=== PATIENT | female | born 1990 | race Caucasian/White ===

== ENCOUNTER 2024-10-26 21:39 | Emergency (ER) | payer BC, SELFPAY ==
[2024-10-26 21:43] VITALS: BP 145/90; PULSE 82; RESP 18; TEMP 36.7; O2SAT 98; BMI 37.2
--- NOTE | 2024-10-26 22:16 | ED_ITS ---
HPI - General Adult General Date Seen: 10/26/24 Chief complaint: Unspecified Complaint, Adult Stated complaint: feels out of it Time Seen by Provider: 10/26/24 21:43 History of Present Illness HPI narrative: Patient is a 34-year-old woman with a history of type 1 diabetes, she has an insulin pump. She is visiting town from [place], she had a reunion on Friday night. She notes that she does not ever drink, but she did have several drinks on Friday night and also had a THC beverage. On Friday she did not feel good, felt kind of hung over. However she has not improved since then she feels like things are getting worse, she just feels like she is ?out of body and that things are moving in slow motion. She says she feels like she is going crazy. She does not have a headache, she does have a history of migraines and she feels like this is sort of an aura that has been going on for several days. She has some pain on both sides of her neck does not describe any trauma. She has not had any fevers or vomiting. Her blood sugars have occasionally dipped into the 50s but right now she is at 100. She denies any substances since Friday. She notes that her heart rate was fast last night in the 140s but that seems to have resolved. She is status post hysterectomy, has her ovaries still. Review of Systems Status of ROS: Reports: 10 or more systems reviewed and unremarkable except as noted in History and below PFSH PFS Social History Smoking Status: Never smoker How often do you have a drink containing alcohol: 2-4 times a month AUDIT-C Alcohol total score: 2 Non-prescribed substance use: denies use Exam Narrative: Exam Narrative: Vital signs reviewed In general, alert, nontoxic young woman. Head: Normocephalic, atraumatic. Eyes: Sclera clear. Pupils equal and reactive. ENT: Mucous membranes moist. Neck: Supple without adenopathy. Minimal muscular tenderness posteriorly. No meningeal signs. No obvious thyromegaly. Heart: Regular rate and rhythm without murmur. Lungs: Clear. No increased work of breathing, crackles or wheezes. Abdomen: Soft, nontender to palpation. Extremities: Well perfused, pulses intact. No significant edema. Neurologic: Alert, conversant. Speech fluent, face symmetric. Moves all extremities equally. Skin: Warm, dry well perfused. Affect: Normal. Const: Vital Signs, click to edit/add: Vital Signs - 24 hr 10/26/24 21:43 Temperature 98.0 F Pulse Rate [Left P ulse Oximeter] 82 Respiratory Rate 18 Blood Pressure [Ri ght Upper Arm] 145/90 H Pulse Oximetry 98 Oxygen Delivery Me thod Room Air Course Course ED Course: Discussed with her that it may be difficult tonight figure out exactly why she is feeling off, given that symptoms are little bit nonspecific. She does note that she has not been getting much sleep, for example she worked overnight y , came home at 9:00 a.m. and just slept for couple of hours and then was up and about with her kids. Sleep deprivation may be contributing a bit to her symptoms. We did check basic labs including a CBC, comprehensive metabolic panel, and TSH. Her labs are normal, TSH is still pending but I do think reasonable to let her go home him back in follow-up on that later. She had a mg of Ativan, she continues to look well, resting comfortably. Recommend primary care follow-up if she is not feeling things are improved, certainly for worsening or new symptoms such as fever, neurologic changes, severe headache, etcetera return to the ER at any time. Vital Signs Vital signs: Initial Vital Signs Temperature 98.0 F 10/26/24 21:43 Temperature Source Temporal Artery Scan 10/26/24 21:43 Pulse Rate 82 10/26/24 21:43 Pulse Rhythm Regular 10/26/24 21:43 Respiratory Rate 18 10/26/24 21:43 Blood Pressure 145/90 H 10/26/24 21:43 Blood Pressure Mean 108 H 10/26/24 21:43 Blood Pressure Position Sitting 10/26/24 21:43 Pulse Oximetry 98 10/26/24 21:43 Oxygen Delivery Method Room Air 10/26/24 21:43 Vital Signs Temperature 98.0 F 10/26/24 21:43 Pulse Rate 82 10/26/24 21:43 Respiratory Rate 18 10/26/24 21:43 Blood Pressure 145/90 H 10/26/24 21:43 Pulse Oximetry 98 10/26/24 21:43 Oxygen Delivery Method Room Air 10/26/24 21:43 Temperature 98.0 F 10/26/24 21:43 Pulse Rate 82 10/26/24 21:43 Respiratory Rate 18 10/26/24 21:43 Blood Pressure 145/90 H 10/26/24 21:43 Pulse Oximetry 98 10/26/24 21:43 Oxygen Delivery Method Room Air 10/26/24 21:43 Medications Administered Medications: Discontinued Medications Generic Name Dose Route Start Last Admin Trade Name Jayson PRN Reason Stop Dose Admin Lorazepam 1 mg 10/26/24 22:08 10/26/24 22:20 Lorazepam 1 Mg Tablet PO 10/26/24 22:09 1 mg ONCE ONE Administration Medical Decision Making Lab Data Lab results reviewed: Yes I reviewed the patient's lab results Labs: Lab Results 10/26/24 Range/Units 22:30 WBC 8.92 (4.50-11.00) K/uL RBC 4.48 (4.00-5.20) m/uL Hgb 13.3 (12.0-16.0) gm/dL Hct 39.6 (33.0-51.0) % MCV 88 (80-100) fL MCH 30 (26-34) pg MCHC 34 (32-36) gm/dL RDW Coeff of Bobbi 11.7 (11.5-15.5) % Plt Count 315 (140-440) K/uL Neut % (Auto) 63.7 (42.0-72.0) % Lymph % (Auto) 26.3 (20-44) % [place] % (Auto) 6.8 (0.0-11.0) % Eos % (Auto) 2.7 (0.0-7.0) % Baso % (Auto) 0.4 (0.0-3.0) % Neut # (Auto) 5.67 (1.7-7.0) K/uL Lymph # (Auto) 2.35 (0.90-2.90) K/uL [place] # (Auto) 0.60 (0.00-0.90) K/UL Eos # (Auto) 0.24 (0.00-0.50) K/uL Baso # (Auto) 0.04 (0.00-0.30) K/uL Abs Immat Gran (auto) 0.01 (0.00-0.30) K/uL Imm/Tot Granulo (auto) 0.1 % Sodium 136 (135-149) mmol/L Potassium 3.9 (3.6-5.1) mmol/L Chloride 97 (96-114) mmol/L Carbon Dioxide 32 (20-32) mmol/L Anion Gap 7 (7-15) mEq/L BUN 14 (5-24) mg/dL Creatinine 0.8 (0.5-1.5) mg/dL Estimated Creat Clear 86.37 Estimated GFR 100 ml/min Glucose 97 (60-115) mg/dL Calcium 10.4 (8.4-10.6) mg/dL Magnesium 1.9 (1.5-2.6) mg/dL Total Bilirubin 0.3 (0.1-1.5) mg/dL AST 26 (12-35) U/L ALT 32 (4-35) U/L Alkaline Phosphatase 51 (40-150) U/L Total Protein 7.5 (6.0-8.3) g/dL Albumin 4.5 (3.3-5.0) g/dL TSH 3.120 (0.270-4.200) uIU/mL Discharge Plan Discharge Clinical Impression: Malaise Patient Disposition: Home, Self-Care Condition: Stable Additional Instructions: Labs tonight are all very reassuring. See how you feel over the next few days. If you do not feel that your symptoms are improving, see her primary doctor at home. Return any time if you have new or severe symptoms. Follow Up/Referrals: Provider,Not a Local [Primary Care Provider, Family Practice] Stand Alone Forms: [employer] Info Instructions
[2024-10-26 22:38] LABS: Hematocrit 39.6 % (33.0-51.0); Hemoglobin* 13.3 gm/dL (12.0-16.0); Immature Granulocytes Abs Auto 0.01 K/uL (0.00-0.30); Immature Granulocytes Pct Auto 0.1 %; Lymphocytes Absolute Auto 2.35 K/uL (0.90-2.90); Mean Corpuscular HGB Conc 34 gm/dL (32-36); Mean Corpuscular Hemoglobin 30 pg (26-34); Mean Corpuscular Volume 88 fL (80-100); RDW Coefficient of Variation % 11.7 % (11.5-15.5); Red Blood Count 4.48 m/uL (4.00-5.20); White Blood Count* 8.92 K/uL (4.50-11.00)
[2024-10-26 22:39] LABS: Slide Review Reflex No
[2024-10-26 22:55] LABS: Albumin* 4.5 g/dL (3.3-5.0); Chloride* 97 mmol/L (96-114); Potassium* 3.9 mmol/L (3.6-5.1); Sodium* 136 mmol/L (135-149)
[2024-10-26 23:00] LABS: Alanine Aminotransferase* 32 U/L (4-35); Alkaline Phosphatase* 51 U/L (40-150); Anion Gap 7 mEq/L (7-15); Aspartate Amino Transferase* 26 U/L (12-35); Bilirubin Total* 0.3 mg/dL (0.1-1.5); Blood Urea Nitrogen* 14 mg/dL (5-24); Calcium* 10.4 mg/dL (8.4-10.6); Carbon Dioxide* 32 mmol/L (20-32); Creatinine* 0.8 mg/dL (0.5-1.5); Est. Creatinine Clearance* 86.37; Estimated Glomerular Filt Rate 100 ml/min; Glucose* 97 mg/dL (60-115); Total Protein* 7.5 g/dL (6.0-8.3)
[2024-10-26 23:29] LABS: TSH With Reflex to FT4* 3.120 uIU/mL (0.270-4.200)
== END 2024-10-26 23:34 | disposition home or self-care (01) ==
PROVIDERS: Emergency Provider Emergency Medicine
DX: R53.81 Other malaise (principal)
CPT/HCPCS: 36415; 80050; 80053; 83735; 84443; 85025; 93005; 99284; A9270